=== PATIENT | male | born 1940 | race Caucasian/White ===

== ENCOUNTER 2020-10-10 05:50 | Day surgery (SDC) | payer MEDICARE, BC ==
[2020-10-09 13:26] LABS: BASOPHILS % (AUTO) 0.4 % (0-1); EOSINOPHILS # (AUTO) 0.1 X10'3 (0-0.9); EOSINOPHILS % (AUTO) 1.8 % (0-6); HEMATOCRIT 43.7 % (42.0-52.0); HEMOGLOBIN 14.5 g/dl (14.0-17.9); LYMPHOCYTES # (AUTO) 0.8 X10'3 (1.1-4.8); LYMPHOCYTES % (AUTO) 15.9 % (21-51); MEAN CORPUSCULAR HEMOGLOBIN 30.8 PG (27.0-31.0); MEAN CORPUSCULAR HGB CONC 33.3 g/dL (33.0-36.5); MEAN CORPUSCULAR VOLUME 92.7 FL (78-98); MEAN PLATELET VOLUME 7.4 FL (7.4-10.4); MONOCYTES # (AUTO) 0.6 X10'3 (0-0.9); NEUTROPHILS # (AUTO) 3.4 X10'3 (1.8-7.7); NEUTROPHILS % (AUTO) 69.9 % (42-75); PLATELET COUNT 221 X10'3 (140-440); RED BLOOD COUNT 4.72 X10'6 (4.70-6.10); RED CELL DISTRIBUTION WIDTH 14.4 % (11.5-14.5); WHITE BLOOD COUNT 4.9 X10'3 (4.5-11.0)
[2020-10-09 13:35] LABS: ALBUMIN 3.6 G/DL (3.4-5.0); ANION GAP 7 (8-16); BLOOD UREA NITROGEN 21 MG/DL (7-18); BUN/CREATININE RATIO 25.6 (5.4-32.0); CALCIUM 8.7 MG/DL (8.5-10.1); CHLORIDE 106 MMOL/L (99-107); CREATININE 0.82 MG/DL (0.60-1.10); GLUCOSE 103 MG/DL (70-104); POTASSIUM 4.4 MMOL/L (3.5-5.1); SODIUM 142 MMOL/L (135-145); TOTAL CARBON DIOXIDE 29.4 MMOL/L (24-32); eGFR 90 ML/MIN
[2020-10-09 13:38] LABS: PARTIAL THROMBOPLASTIN TIME 30 SECONDS (22-32)
[~2020-10-10] VITALS: Ht 185.4 cm; Wt 76.5 kg
[2020-10-10] VITALS (17 sets, daily range): BP systolic 109–156; BP diastolic 49–97
[~2020-10-10 05:50] MED LIST: ASCO500C18 PO; ATOR20TA PO; ESOM40CA49 PO; FLUT16SP26 BOTHNARES; FLUT1DIS4 INH; GABA100C PO; KRIL500C PO; LISI10TA27 PO; TERA2CAP4 PO; VALA10002 PO
[2020-10-10] MEDS ORDERED: normal saline 1,000 ML IV SCH ×2 (06:05→11:10)
[2020-10-10] MEDS ORDERED: LORazepam 0.5 MG tablet PO PRN (06:05)
[2020-10-10] MEDS ORDERED: LIDOcaine/PRILOcaine 5gm cream TP ONE (06:05)
[2020-10-10] MEDS ORDERED: diphenhydrAMINE 25mg capsule PO PRN (06:05)
[2020-10-10] MEDS ORDERED: LOSA100T57 PO (06:15)
[2020-10-10] MEDS ORDERED: ISOS30TA84 PO (06:15)
[2020-10-10] MEDS ORDERED: NITR0.4T48 (06:15)
[2020-10-10] MEDS ORDERED: MECO10005 PO (06:22)
[2020-10-10] MEDS ORDERED: GLUC100017 (06:22)
[2020-10-10] MEDS ORDERED: IBUP-24 PO (06:22)
[2020-10-10] MEDS ORDERED: MAGN400C PO (06:22)
[2020-10-10] MEDS ORDERED: ALBU8.5H8 INH (06:22)
[2020-10-10] MEDS ORDERED: allergy shots (06:22)
[2020-10-10] MEDS ORDERED: nitroGLYCERIN-Tridil 50MG/D5W 250 ML IV ONE (07:14)
[2020-10-10] MEDS ORDERED: verapamil 2.5 mg/ml inj IV ONE (07:14)
[2020-10-10] MEDS ORDERED: midazolam 1 mg/ML 2ml injection ONE (07:14)
[2020-10-10] MEDS ORDERED: iohexol 350MG/ML 100ml bottle IV ONE ×2 (07:15→08:27)
[2020-10-10] MEDS ORDERED: heparin 1,000unit/ml 10ml vial 10 ML ONE (07:15)
[2020-10-10] MEDS ORDERED: LIDOcaine 1% (10mg/ml)w/preservative injection 20ml MDV ONE (07:15)
[2020-10-10] MEDS ORDERED: iohexol 350 MG/ML 50ML vial IV ONE (07:15)
[2020-10-10] MEDS ORDERED: fentaNYL/PF 50MCG/1 ML 2ML syringe ONE (07:15)
[2020-10-10] MEDS ORDERED: heparin 25,000 UNIT/250ml bag 250 ML IV ONE (08:27)
--- NOTE | 2020-10-10 13:54 | NUR ---
Trace nonpitting edema in R foot from ankle injury from recent fall from a ladder. Addendum: 10/10/20 at 1418 by Lisa PALACIOS Amended: Links added.
== END 2020-10-10 16:50 | disposition home or self-care (01) ==
LOC: SSTAY O 05:50
PROVIDERS: ATTEND Internal Medicine Cardiovascular Disease
DX: R94.39 Abnormal result of other cardiovascular function study (principal); R07.89 Other chest pain; I25.118 Atherosclerotic heart disease of native coronary artery with other forms of angina pectoris; I10 Essential (primary) hypertension; E78.5 Hyperlipidemia, unspecified; E55.9 Vitamin D deficiency, unspecified; K21.9 Gastro-esophageal reflux disease without esophagitis; M47.892 Other spondylosis, cervical region; M19.90 Unspecified osteoarthritis, unspecified site; M54.30 Sciatica, unspecified side; G62.9 Polyneuropathy, unspecified; Z87.11 Personal history of peptic ulcer disease; Z86.010 Personal history of colon polyps; Z85.46 Personal history of malignant neoplasm of prostate; Z90.79 Acquired absence of other genital organ(s); Z98.42 Cataract extraction status, left eye; Z87.442 Personal history of urinary calculi; Z72.89 Other problems related to lifestyle; Z88.2 Allergy status to sulfonamides; Z88.8 Allergy status to other drugs, medicaments and biological substances; Z82.3 Family history of stroke; Z81.8 Family history of other mental and behavioral disorders
CPT/HCPCS: 36415; 76937; 80048; 85025; 85610; 85730; 93005; 93458; 99152; 99153; C1751; C1769; C1894; J1644; J2001; J2250; J3010; J7030; Q0163; Q9967; A4620; A5120; J3490

== ENCOUNTER 2021-08-25 16:40 | Observation (INO) | payer MEDICARE, BC ==
[~2021-08-25] VITALS: Ht 180.3 cm; Wt 77.3 kg
[~2021-08-25 16:40] MED LIST changes: +ACET-1025 PO; +ASPI-1071 PO; -FLUT1DIS4 INH; -GABA100C PO; +GLUC100017 PO; -KRIL500C PO; -LISI10TA27 PO; +MAGN400C PO; +MECO10005 PO; +METO-395 PO; -TERA2CAP4 PO; -VALA10002 PO; +allergy shots
[2021-08-25 17:57] LABS: BASOPHILS % (AUTO) 0.6 % (0-1); EOSINOPHILS # (AUTO) 0.1 X10'3 (0-0.9); EOSINOPHILS % (AUTO) 2.6 % (0-6); HEMATOCRIT 43.5 % (42.0-52.0); HEMOGLOBIN 14.8 g/dl (14.0-17.9); LYMPHOCYTES # (AUTO) 0.8 X10'3 (1.1-4.8); LYMPHOCYTES % (AUTO) 15.1 % (21-51); MEAN CORPUSCULAR HEMOGLOBIN 30.6 PG (27.0-31.0); MEAN CORPUSCULAR VOLUME 89.9 FL (78-98); MEAN PLATELET VOLUME 7.8 FL (7.4-10.4); MONOCYTES # (AUTO) 0.6 X10'3 (0-0.9); MONOCYTES % (AUTO) 10.8 % (2-12); NEUTROPHILS # (AUTO) 3.8 X10'3 (1.8-7.7); NEUTROPHILS % (AUTO) 70.9 % (42-75); PLATELET COUNT 210 X10'3 (140-440); RED BLOOD COUNT 4.84 X10'6 (4.70-6.10); RED CELL DISTRIBUTION WIDTH 15.6 % (11.5-14.5); WHITE BLOOD COUNT 5.4 X10'3 (4.5-11.0)
[2021-08-25 18:04] LABS: APTT 32 SECONDS (22-32)
[2021-08-25 18:06] LABS: ALANINE AMINOTRANSFERASE 19 U/L (12-78); ALBUMIN 3.7 G/DL (3.4-5.0); ALBUMIN/GLOBULIN RATIO 1.3 (1.1-1.5); ALKALINE PHOSPHATASE 73 IU/L (46-116); ANION GAP 7 (8-16); ASPARTATE AMINO TRANSFERASE 22 U/L (10-37); BILIRUBIN,TOTAL 0.9 MG/DL (0.1-1.0); BLOOD UREA NITROGEN 20 MG/DL (7-18); BUN/CREATININE RATIO 23.3 (5.4-32.0); CALCIUM 8.7 MG/DL (8.5-10.1); CHLORIDE 108 MMOL/L (99-107); CREATININE 0.86 MG/DL (0.60-1.10); GLUCOSE 120 MG/DL (70-104); POTASSIUM 4.1 MMOL/L (3.5-5.1); SODIUM 141 MMOL/L (135-145); TOTAL CARBON DIOXIDE 26.3 MMOL/L (24-32); TOTAL PROTEIN 6.5 G/DL (6.4-8.2); eGFR 85 ML/MIN
[2021-08-25 19:04] LABS: CLARITY,URINE CLEAR (Clear); COLOR,URINE YELLOW (Yellow); GLUCOSE, URINE NEGATIVE (Neg); KETONES,URINE NEGATIVE (Neg); LEUKOCYTE ESTERASE ,URINE NEGATIVE (Neg); NITRITES, URINE NEGATIVE (Neg); OCCULT BLOOD,URINE TRACE-INTACT (Neg); PH,URINE 5.5 (4.8-8.0); PROTEIN,URINE NEGATIVE (Neg); UROBILINOGEN,URINE 0.2 E.U/dL (0.2-1.0)
[2021-08-25 19:10] LABS: UA COLLECTION TYPE CLN CATCH MIDSTREAM
[2021-08-25 19:11] LABS: BACTERIA,URINE NONE SEEN /HPF (Neg); RBC,URINE 0-2 /HPF (0-2); SQUAMOUS EPITHELIAL CELL,UR NONE SEEN /LPF (FEW); WBC,URINE NONE SEEN /HPF (0-4)
[2021-08-25] MEDS ORDERED: iohexol 300mg/ml 100ml inj. ONE (19:59)
--- NOTE | 2021-08-25 20:02 | NUR ---
WENT TO CT
[2021-08-25] MEDS ORDERED: ALB0.5UD IH (21:28)
[2021-08-25] MEDS ORDERED: non-formulary drug (Acetaminophen (Tylenol Extra Strength) 1 TAB) PO PRN (22:15)
[2021-08-25] MEDS ORDERED: fluticasone nasal spray 16GM bottle NS PRN (22:15)
[2021-08-25] MEDS ORDERED: potassium Cl 20 mEq SR tablet PO PRN ×2 (22:20)
[2021-08-25] MEDS ORDERED: acetaminophen 325mg tablet PO PRN (22:20)
[2021-08-25] MEDS ORDERED: potassium CL 10mEq/100ml bag 100 ML IV PRN (22:20)
[2021-08-25] MEDS ORDERED: ondansetron/PF 4mg/2ml inj IV PRN (22:20)
[2021-08-25] MEDS ORDERED: magnesium 2GM in 50ml NS 50 ML IV PRN (22:20)
[2021-08-25] MEDS ORDERED: magnesium 4gm in 100ml NS 100 ML IV PRN (22:20)
[2021-08-25] MEDS ORDERED: mag hydrox/Alum hydrox/simeth 30ml oral suspension PO PRN (22:20)
[2021-08-25] MEDS ORDERED: hydrALAZINE 20mg/ml inj. IV PRN (22:40)
[2021-08-25 23:53] LABS: HEMATOCRIT 41.7 % (42.0-52.0); HEMOGLOBIN 13.8 g/dl (14.0-17.9); MEAN CORPUSCULAR HEMOGLOBIN 29.9 PG (27.0-31.0); MEAN CORPUSCULAR HGB CONC 33.1 g/dL (33.0-36.5); MEAN CORPUSCULAR VOLUME 90.4 FL (78-98); MEAN PLATELET VOLUME 7.7 FL (7.4-10.4); PLATELET COUNT 192 X10'3 (140-440); RED BLOOD COUNT 4.61 X10'6 (4.70-6.10); RED CELL DISTRIBUTION WIDTH 15.7 % (11.5-14.5); WHITE BLOOD COUNT 4.8 X10'3 (4.5-11.0)
[2021-08-26] VITALS: BP 143/90
[2021-08-26] MEDS: pantoprazole 40MG/NS 100ML BAG 100 ML IV SCH ×5 (00:40→20:14)
[2021-08-26 06:38] LABS: HEMATOCRIT 42.4 % (42.0-52.0); HEMOGLOBIN 13.8 g/dl (14.0-17.9); MEAN CORPUSCULAR HEMOGLOBIN 29.6 PG (27.0-31.0); MEAN CORPUSCULAR HGB CONC 32.7 g/dL (33.0-36.5); MEAN CORPUSCULAR VOLUME 90.4 FL (78-98); MEAN PLATELET VOLUME 7.9 FL (7.4-10.4); PLATELET COUNT 182 X10'3 (140-440); RED BLOOD COUNT 4.68 X10'6 (4.70-6.10); RED CELL DISTRIBUTION WIDTH 15.7 % (11.5-14.5); WHITE BLOOD COUNT 3.4 X10'3 (4.5-11.0)
--- NOTE | 2021-08-26 06:48 | NUR ---
Report given to BETH Carrizales, for continuation of care. Patient remains afebrile and stable
--- NOTE | 2021-08-26 06:52 | NUR ---
Patient in room [facility]. I have received report from Yao CAMPOS and had the opportunity to ask questions and assume patient care.
[2021-08-26 07:00] VITALS: BP 153/78
[2021-08-26 07:05] LABS: ALANINE AMINOTRANSFERASE 18 U/L (12-78); ALBUMIN 3.1 G/DL (3.4-5.0); ALBUMIN/GLOBULIN RATIO 1.2 (1.1-1.5); ALKALINE PHOSPHATASE 60 IU/L (46-116); ANION GAP 6 (8-16); ASPARTATE AMINO TRANSFERASE 21 U/L (10-37); BILIRUBIN,TOTAL 0.9 MG/DL (0.1-1.0); BLOOD UREA NITROGEN 17 MG/DL (7-18); BUN/CREATININE RATIO 21.5 (5.4-32.0); CHLORIDE 109 MMOL/L (99-107); CREATININE 0.79 MG/DL (0.60-1.10); GLUCOSE 86 MG/DL (70-104); MAGNESIUM 2.2 MG/DL (1.5-2.4); POTASSIUM 4.1 MMOL/L (3.5-5.1); SODIUM 142 MMOL/L (135-145); TOTAL CARBON DIOXIDE 26.9 MMOL/L (24-32); TOTAL PROTEIN 5.6 G/DL (6.4-8.2); eGFR > 90 ML/MIN
[2021-08-26] MEDS ORDERED: MECOBALAMIN PO SCH (08:00)
[2021-08-26] MEDS ORDERED: non-formulary drug (Glucosamine Sulfate 2Kcl (Glucosamine) 1 TAB) PO SCH (08:00)
[2021-08-26] MEDS: K and/or MAG REPLACEMENT MC SCH ×2 (08:00→19:15)
[2021-08-26] MEDS: metoprolol succinate 25mg (24-HOUR) SR. Tablet PO SCH (08:25)
[2021-08-26] MEDS: ascorbic acid 500mg tablet PO SCH (08:25)
[2021-08-26] MEDS: atorvastatin 20mg tablet PO SCH (08:25)
[2021-08-26 08:56] LABS: OCCULT BLOOD STOOL POSITIVE (Neg)
[2021-08-26 14:26] LABS: HEMATOCRIT 43.2 % (42.0-52.0); HEMOGLOBIN 14.5 g/dl (14.0-17.9); MEAN CORPUSCULAR HEMOGLOBIN 30.3 PG (27.0-31.0); MEAN CORPUSCULAR HGB CONC 33.5 g/dL (33.0-36.5); MEAN CORPUSCULAR VOLUME 90.5 FL (78-98); MEAN PLATELET VOLUME 7.4 FL (7.4-10.4); PLATELET COUNT 197 X10'3 (140-440); RED BLOOD COUNT 4.77 X10'6 (4.70-6.10); RED CELL DISTRIBUTION WIDTH 15.9 % (11.5-14.5); WHITE BLOOD COUNT 3.9 X10'3 (4.5-11.0)
--- NOTE | 2021-08-26 15:01 | NUR ---
Charting by Sue BREWER reviewed by Yong Guzman RN
[2021-08-26 16:00] VITALS: BP 169/89
--- NOTE | 2021-08-26 18:23 | NUR ---
patient seen this am by Dr de la cruz. Request given for old records of a year ago from Dr [facility]. Attempt was made three times to receive these records, still awaiting these results. Dr De La Cruz aware. patient advanced to full liquid diet. Repeat H&H at 2200 and 0600 requested. patient stable with H&H 13.8,42.2 see lab results. B/P 160/80 patient admits he is anxious about plan of care. Report given to Radha CAMPOS
[2021-08-26 19:40] VITALS: BP 153/76
[2021-08-26] MEDS ORDERED: ESOMEPRAZOLE MAGNESIUM 20 MG PO SCH (21:00)
[2021-08-26 21:59] LABS: HEMATOCRIT 43.1 % (42.0-52.0); HEMOGLOBIN 14.1 g/dl (14.0-17.9); MEAN CORPUSCULAR HEMOGLOBIN 29.3 PG (27.0-31.0); MEAN CORPUSCULAR HGB CONC 32.7 g/dL (33.0-36.5); MEAN CORPUSCULAR VOLUME 89.7 FL (78-98); MEAN PLATELET VOLUME 7.4 FL (7.4-10.4); PLATELET COUNT 202 X10'3 (140-440); RED BLOOD COUNT 4.81 X10'6 (4.70-6.10); RED CELL DISTRIBUTION WIDTH 15.9 % (11.5-14.5); WHITE BLOOD COUNT 4.3 X10'3 (4.5-11.0)
[2021-08-27 00:05] VITALS: BP 146/72
[2021-08-27] MEDS: pantoprazole 40MG/NS 100ML BAG 100 ML IV SCH ×3 (02:23→11:00)
[2021-08-27 06:17] LABS: HEMATOCRIT 43.6 % (42.0-52.0); HEMOGLOBIN 14.4 g/dl (14.0-17.9); MEAN CORPUSCULAR HEMOGLOBIN 29.7 PG (27.0-31.0); MEAN PLATELET VOLUME 7.8 FL (7.4-10.4); PLATELET COUNT 189 X10'3 (140-440); RED BLOOD COUNT 4.84 X10'6 (4.70-6.10); RED CELL DISTRIBUTION WIDTH 15.7 % (11.5-14.5)
--- NOTE | 2021-08-27 06:24 | NUR ---
Problems reprioritized. Patient report given, questions answered & plan of care reviewed with January CAMPOS.
[2021-08-27 06:29] LABS: ALANINE AMINOTRANSFERASE 16 U/L (12-78); ALBUMIN 3.2 G/DL (3.4-5.0); ALBUMIN/GLOBULIN RATIO 1.3 (1.1-1.5); ALKALINE PHOSPHATASE 64 IU/L (46-116); ANION GAP 7 (8-16); ASPARTATE AMINO TRANSFERASE 17 U/L (10-37); BLOOD UREA NITROGEN 12 MG/DL (7-18); BUN/CREATININE RATIO 13.8 (5.4-32.0); CALCIUM 8.6 MG/DL (8.5-10.1); CHLORIDE 106 MMOL/L (99-107); CREATININE 0.87 MG/DL (0.60-1.10); GLUCOSE 93 MG/DL (70-104); POTASSIUM 4.1 MMOL/L (3.5-5.1); SODIUM 139 MMOL/L (135-145); TOTAL CARBON DIOXIDE 26.2 MMOL/L (24-32); TOTAL PROTEIN 5.7 G/DL (6.4-8.2); eGFR 84 ML/MIN
--- NOTE | 2021-08-27 06:42 | NUR ---
Patient in room [facility]. I have received report from Radha CAMPOS and had the opportunity to ask questions and assume patient care.
[2021-08-27] MEDS: ascorbic acid 500mg tablet PO SCH (07:25)
[2021-08-27] MEDS: atorvastatin 20mg tablet PO SCH (07:25)
[2021-08-27] MEDS: metoprolol succinate 25mg (24-HOUR) SR. Tablet PO SCH (07:25)
[2021-08-27] MEDS ORDERED: non-formulary drug (Magnesium Oxide (Magnesium) 1 CAP) PO SCH (08:00)
[2021-08-27] MEDS: K and/or MAG REPLACEMENT MC SCH (08:00)
[2021-08-27 08:56] VITALS: BP 167/86
[2021-08-27 11:58] VITALS: BP 124/73
--- NOTE | 2021-08-27 12:02 | NUR ---
patient up and about in room. No c/o pain or bloody diarrhoea, or abdominal pain. . patient seen by Dr Yates, is for DC home today.
--- NOTE | 2021-08-27 12:42 | NUR ---
All DC instructions given to patient . PIV removed intact. Patient awaiting ride
--- NOTE | 2021-08-27 14:34 | NUR ---
patient discharged home via private car with friend in stable condition.[id number]
== END 2021-08-27 12:55 | disposition home or self-care (01) ==
LOC: ER 16:41 → ED HOLD 22:20 → SUR 3N 23:43
PROVIDERS: ADMIT Family Medicine; ATTEND Internal Medicine
DX: K92.2 Gastrointestinal hemorrhage, unspecified (principal); I25.10 Atherosclerotic heart disease of native coronary artery without angina pectoris; E78.5 Hyperlipidemia, unspecified; I10 Essential (primary) hypertension; K21.9 Gastro-esophageal reflux disease without esophagitis; E78.00 Pure hypercholesterolemia, unspecified; Z85.46 Personal history of malignant neoplasm of prostate; Z79.82 Long term (current) use of aspirin; Z79.899 Other long term (current) drug therapy; Z66 Do not resuscitate; Z87.442 Personal history of urinary calculi; Z87.19 Personal history of other diseases of the digestive system; Z95.1 Presence of aortocoronary bypass graft
CPT/HCPCS: 36415; 74178; 80053; 81001; 82272; 83735; 85025; 85027; 85610; 85730; 86885; 86900; 86901; 87081; 96365; 96366; 99285; C9113; G0378; Q9967

== ENCOUNTER 2021-11-01 12:44 | Emergency (ER) | payer MEDICARE, BC ==
[~2021-11-01] VITALS: Ht 180.3 cm; Wt 76.4 kg
[~2021-11-01 12:44] MED LIST changes: -allergy shots
[2021-11-01 13:20] VITALS: BP 181/87
[2021-11-01 13:31] LABS: BASOPHILS % (AUTO) 0.2 % (0-1); EOSINOPHILS % (AUTO) 0.1 % (0-6); HEMATOCRIT 47.4 % (42.0-52.0); HEMOGLOBIN 15.4 g/dl (14.0-17.9); LYMPHOCYTES # (AUTO) 0.6 X10'3 (1.1-4.8); LYMPHOCYTES % (AUTO) 5.8 % (21-51); MEAN CORPUSCULAR HEMOGLOBIN 29.6 PG (27.0-31.0); MEAN CORPUSCULAR HGB CONC 32.6 g/dL (33.0-36.5); MEAN PLATELET VOLUME 7.7 FL (7.4-10.4); MONOCYTES # (AUTO) 1.1 X10'3 (0-0.9); MONOCYTES % (AUTO) 9.7 % (2-12); NEUTROPHILS # (AUTO) 9.2 X10'3 (1.8-7.7); NEUTROPHILS % (AUTO) 84.2 % (42-75); PLATELET COUNT 235 X10'3 (140-440); RED BLOOD COUNT 5.21 X10'6 (4.70-6.10)
[2021-11-01 13:31] LABS: CLARITY,URINE CLEAR (Clear); COLOR,URINE YELLOW (Yellow); GLUCOSE, URINE NEGATIVE (Neg); KETONES,URINE 15 mg/dl (Neg); LEUKOCYTE ESTERASE ,URINE NEGATIVE (Neg); NITRITES, URINE NEGATIVE (Neg); OCCULT BLOOD,URINE LARGE (Neg); PH,URINE 5.5 (4.8-8.0); PROTEIN,URINE NEGATIVE (Neg); UROBILINOGEN,URINE 0.2 E.U/dL (0.2-1.0)
[2021-11-01 13:34] LABS: UA COLLECTION TYPE NON-SPECIFIED
[2021-11-01 13:43] LABS: ALANINE AMINOTRANSFERASE 22 U/L (12-78); ALBUMIN 4.1 G/DL (3.4-5.0); ALBUMIN/GLOBULIN RATIO 1.3 (1.1-1.5); ALKALINE PHOSPHATASE 84 IU/L (46-116); ANION GAP 8 (8-16); ASPARTATE AMINO TRANSFERASE 25 U/L (10-37); BILIRUBIN,TOTAL 1.2 MG/DL (0.1-1.0); BLOOD UREA NITROGEN 21 MG/DL (7-18); BUN/CREATININE RATIO 15.8 (5.4-32.0); CALCIUM 8.8 MG/DL (8.5-10.1); CHLORIDE 103 MMOL/L (99-107); CREATININE 1.33 MG/DL (0.60-1.10); GLUCOSE 98 MG/DL (70-104); LIPASE 52 U/L (73-393); POTASSIUM 4.1 MMOL/L (3.5-5.1); SODIUM 137 MMOL/L (135-145); TOTAL CARBON DIOXIDE 26.1 MMOL/L (24-32); TOTAL PROTEIN 7.3 G/DL (6.4-8.2); eGFR 52 ML/MIN
[2021-11-01 13:44] LABS: BACTERIA,URINE NONE SEEN /HPF (Neg); MUCUS STRANDS NONE SEEN /LPF (Neg); RBC,URINE 0-2 /HPF (0-2); SQUAMOUS EPITHELIAL CELL,UR NONE SEEN /LPF (FEW); WBC,URINE NONE SEEN /HPF (0-4)
[2021-11-01] MEDS ORDERED: morphine 4 MG/ML inj SYRINge IV ONE (13:55)
[2021-11-01] MEDS ORDERED: tamsulosin 0.4mg capsule PO ONE (13:55)
[2021-11-01] MEDS ORDERED: ondansetron/PF 4mg/2ml inj IV ONE (13:55)
[2021-11-01] MEDS ORDERED: normal saline 1000ML IV soln IVB ONE (13:55)
[2021-11-01] MEDS ORDERED: FLO0.4C PO (15:16)
[2021-11-01] MEDS ORDERED: HYDR-3972 PO (15:16)
[2021-11-01] MEDS ORDERED: IBUP-1984 PO (15:18)
== END 2021-11-01 15:46 | disposition home or self-care (01) ==
LOC: ER 12:45
DX: N20.0 Calculus of kidney (principal); R11.12 Projectile vomiting; I25.10 Atherosclerotic heart disease of native coronary artery without angina pectoris; E78.00 Pure hypercholesterolemia, unspecified; I10 Essential (primary) hypertension; M19.90 Unspecified osteoarthritis, unspecified site; Z95.5 Presence of coronary angioplasty implant and graft; Z72.89 Other problems related to lifestyle; Z79.82 Long term (current) use of aspirin; Z79.899 Other long term (current) drug therapy; Z88.2 Allergy status to sulfonamides; Z88.8 Allergy status to other drugs, medicaments and biological substances
CPT/HCPCS: 36415; 74176; 80053; 81001; 83690; 85025; 96361; 96374; 96375; 99284; J2270; J2405; J7030

== ENCOUNTER 2024-01-21 09:15 | Day surgery (SDC) | payer MEDICARE, BC ==
[~2024-01-21] VITALS: Ht 180.3 cm; Wt 74.8 kg
[2024-01-21] VITALS (7 sets, daily range): BP systolic 115–185; BP diastolic 62–84; PULSE 47–60; RESP 12–16; TEMP 97.6; O2SAT 93–97
[~2024-01-21 09:15] MED LIST changes: -ATOR20TA PO; +ATOR40TA71 PO
[2024-01-21] MEDS ORDERED: propofol inj 20 ML IV ONE (10:52)
[2024-01-21] MEDS ORDERED: fentaNYL/PF 50MCG/1 ML 2ML syringe ONE (10:52)
[2024-01-21] MEDS ORDERED: midazolam 1 mg/ML 2ml injection ONE (10:52)
[2024-01-21] MEDS ORDERED: simethicone 40mg/0.6ml oral drops 30ml ONE (10:52)
== END 2024-01-21 11:45 | disposition home or self-care (01) ==
LOC: GI LAB 09:15
PROVIDERS: ATTEND Internal Medicine Gastroenterology
DX: K30 Functional dyspepsia (principal); K29.50 Unspecified chronic gastritis without bleeding; I12.9 Hypertensive chronic kidney disease with stage 1 through stage 4 chronic kidney disease, or unspecified chronic kidney disease; N18.30 Chronic kidney disease, stage 3 unspecified; K21.9 Gastro-esophageal reflux disease without esophagitis; J45.909 Unspecified asthma, uncomplicated; Z95.1 Presence of aortocoronary bypass graft
CPT/HCPCS: 43239; A4620; J2250; J2704; J3010; J7030; Z7512